=== PATIENT | male | born 1945 | race Caucasian/White ===

== ENCOUNTER → 2023-09-03 08:25 | Outpatient (REF) | payer MEDICARE, SELFPAY | LOC: RCS 08:25 | PROVIDERS: ATTENDING PHYSICIAN Internal Medicine Interventional Cardiology; FAMILY PHYSICIAN Family Medicine | DX: I42.9 Cardiomyopathy, unspecified (principal) | CPT/HCPCS: 93306 ==

== ENCOUNTER → 2024-07-09 09:35 | Outpatient (REF) | payer MEDICARE, SELFPAY ==
[2024-07-09 10:08] LABS: Free T4 1.26 ng/dl (0.78-2.19)
[2024-07-09 10:22] LABS: TSH 1.43 uIU/ml (0.47-4.68)
== END ==
LOC: OIDL 09:35
PROVIDERS: ATTENDING PHYSICIAN Internal Medicine Hematology & Oncology
DX: C61 Malignant neoplasm of prostate (principal); C79.51 Secondary malignant neoplasm of bone; Z19.2 Hormone resistant malignancy status; C43.72 Malignant melanoma of left lower limb, including hip
CPT/HCPCS: 84439; 84443

== ENCOUNTER → 2024-07-12 14:34 | Outpatient (REF) | payer MEDICARE, SELFPAY | LOC: RCS 14:34 | PROVIDERS: ATTENDING PHYSICIAN Internal Medicine Interventional Cardiology; FAMILY PHYSICIAN Family Medicine | DX: I42.9 Cardiomyopathy, unspecified (principal) | CPT/HCPCS: 93306 ==

== ENCOUNTER → 2024-08-03 10:03 | Outpatient (REF) | payer MEDICARE, SELFPAY ==
[2024-08-03 10:15] LABS: % Basophils 0.2 % (0-2); % Immature Granulocytes 0.2 % (0-0.5); % Lymphocytes 17.7 % (20.5-51.1); % Monocytes 10.4 % (1.7-9.3); % Neutrophils 71.5 % (42.2-75.2); Absolute Lymphocytes 0.8 10^3/uL (1.2-3.4); Absolute Monocytes 0.4 10^3/uL (0.1-0.6); Hematocrit 36.2 % (39.0-52.0); Hemoglobin 12.7 g/dL (13.0-18.0); Mean Corp Hgb Conc. 35.1 g/dL (33.0-37.0); Mean Corpuscular Hgb 32.6 pg (27.0-31.0); Mean Corpuscular Volume 93.1 fL (80.0-94.0); Mean Platelet Volume 10.3 fL (7.4-10.4); Platelet Count 228 10^3/uL (130-400); Red Blood Cell Count 3.89 10^6/uL (4.70-6.10); Red Cell Dist. Width 12.9 % (11.5-14.5); White Blood Cell Count 4.2 10^3/uL (4.8-10.8)
[2024-08-03 10:52] LABS: ALT (SGPT) 31 U/L (0-50); AST (SGOT) 38 U/L (17-59); Albumin 4.2 g/dl (3.5-5.0); Alkaline Phosphatase 83 U/L (38-126); Blood Urea Nitrogen 31 mg/dl (9-20); Calcium 9.9 mg/dl (8.4-10.2); Carbon Dioxide 26 mmol/L (22-30); Chloride 102 mmol/L (98-107); Glucose 125 mg/dl (70-99); Potassium 4.7 mmol/L (3.5-5.1); Sodium 138 mmol/L (135-145); Total Protein 6.9 g/dl (6.3-8.2); eGFR > 60.00
[2024-08-03 11:09] LABS: Free T3 4.47 pg/ml (2.77-5.27); Free T4 1.06 ng/dl (0.78-2.19)
[2024-08-03 11:22] LABS: TSH 1.78 uIU/ml (0.47-4.68)
== END ==
LOC: OIDL 10:03
PROVIDERS: ATTENDING PHYSICIAN Internal Medicine Hematology & Oncology
DX: C61 Malignant neoplasm of prostate (principal); C79.51 Secondary malignant neoplasm of bone; Z19.2 Hormone resistant malignancy status; C43.72 Malignant melanoma of left lower limb, including hip
CPT/HCPCS: 80053; 84439; 84443; 84481; 85025